=== PATIENT | male | born 1960 | race African-American/Black ===

== ENCOUNTER 2017-05-27 04:17 | Observation (INO) | payer OTHER ==
[2017-05-27 05:35] LABS: #Basophils 0.1 thou/uL (0.0-0.2); #Eosinphils 0.1 thou/uL (0.0-0.7); #Lymphocytes 2.3 thou/uL (1.20-3.40); #Monocytes 0.6 thou/uL (0.11-0.59); #Neutrophils 5.3 thou/uL (1.40-6.50); %Basophils 0.7 % (0.0-1.0); %Eosinophils 1.5 % (0.0-10.0); %Lymphocytes 27.1 % (21.0-51.0); %Monocytes 6.8 % (0.0-10.0); %Neutrophils 63.9 % (42.0-75.0); Hemoglobin 15.3 g/dL (14.0-18.0); Mean Corpuscular HGB CONC 32.6 g/dL (32.0-36.0); Mean Corpuscular Hemoglobin 30.2 pg (27.0-31.0); Mean Corpuscular Volume 92.7 fl (80.0-94.0); Mean Platelet Volume 7.8 fL (7.4-10.4); Platelet Count 196 thou/uL (130-400); RBC Distribution Width 12.6 % (11.5-14.5); Red Blood Cell (RBC) Count 5.05 mill/uL (4.70-6.10); White Blood Cell (WBC) Count 8.3 thou/uL (4.8-10.8)
[2017-05-27 05:59] LABS: ALT (SGPT) 19 U/L (8-55); AST (SGOT) 15 U/L (5-34); Albumin 3.6 g/dL (3.5-5.0); Alkaline Phosphatase 61 U/L (40-150); Anion Gap 15 mmol/L (10-20); BUN (Urea Nitrogen) 11 mg/dL (8.4-25.7); Bilirubin, Total 0.2 mg/dL (0.2-1.2); CK (CPK) 157 U/L (30-200); Calc. Creatinine Clearance 0 mL/min (70-130); Carbon Dioxide 20 mmol/L (22-29); Chloride 108 mmol/L (98-107); Estimated GFR-MDRD 73; Globulin 3.6 g/dL (2.4-3.5); Glucose 120 mg/dL (70-105); Potassium 3.8 mmol/L (3.5-5.1); Protein, Total 7.2 g/dL (6.0-8.3); Sodium 139 mmol/L (136-145)
[2017-05-27 06:05] LABS: CKMB 1.4 ng/mL (0-6.6); Troponin I Less than 0.010 ng/mL (< 0.028)
[2017-05-27] MEDS ORDERED: NS 0.9% w/ 20 MEQ KCL 1,000 ML/1,000 ML BAG IV SCH (08:33)
[2017-05-27] MEDS ORDERED: Acetaminophen 325 MG TAB PO PRN (08:33)
[2017-05-27] MEDS ORDERED: Mag-Al 1200 mg/1200 mg/30 ML UDCUP PO PRN (08:33)
[2017-05-27] MEDS ORDERED: Ondansetron HCl/PF 4 MG/2 ML Vial IVP PRN (08:33)
[2017-05-27 08:47] VITALS: BMI 37.5
--- NOTE | 2017-05-27 09:33 | HP ---
PRIMARY CARE PHYSICIAN: Dr. Benita Omalley. CHIEF COMPLAINT: Extreme weakness and diarrhea. HISTORY OF PRESENT ILLNESS: Mr. Lechuga is a 56-year-old gentleman that has no significant past medi manas history. He says that he got off from work, and when he got home, he had drink a vodka and cranb erry and then around midnight went to sleep. He said that around 3:00 in the morning, he had the urg e to go the bathroom and then suddenly he got profusely sweaty and dizzy and lost his balance. He th ought he was going to throw up but he did not, but then got so weak and then started having severe profuse diarrhea. He says that he was extremely weak and could barely stand up. He is not sure how many times he went to the bathroom with the diarrhea. He does not remember having any blood in the s tools, but he was so weak he had to call EMS to get help. He says he thought he was going to . Nikko duarte denies having any chest pain or shortness of breath or fever or chills during this time, and when nikko duarte was brought to the emergency room, a CT scan of the brain was done because he was not sure if he du s had passed out or not. It was also noted that his blood pressure was on the lower side and a CT sc an of the brain was negative. Blood pressure was slightly low. All his lab work looked normal and nikko duarte is being placed in observation. REVIEW OF SYSTEMS: CONSTITUTIONAL: There have been no fevers, no chills, no night sweats, no weight loss. HEENT: He denies any headache. He did have some dizziness and feeling lightheaded, no sore throat, rhinorrhea, neck pain, no adenopathy. PULMONARY: No hemoptysis, no cough, no wheezing. CARDIOVASCULAR: He denies any chest pain, no shortness of breath, no PND, no orthopnea. GASTROINTESTINAL: As the history of present illness. He also denied having any abdominal pain, no h ematemesis. GENITOURINARY: No urinary frequency, hematuria, no hesitancy. NEUROLOGIC: No focal weakness, numbness, no seizures. PSYCHIATRIC: No symptoms of anxiety or depression. SKIN AND INTEGUMENT: No skin changes. No rash. MUSCULOSKELETAL: There is no muscle weakness or joint weakness. PAST MEDICAL HISTORY: Negative for any chronic illnesses. PAST SURGICAL HISTORY: Also negative. ALLERGIES: PENICILLIN. SOCIAL HISTORY: He smokes about a half a pack of cigarettes for 20 years. He says he has no intenti ons of quitting. He also drinks a couple of wine or vodka every few weeks, and he is . He du s 1 child. 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 FAMILY HISTORY: Significant for diabetes in his mother. CURRENT MEDICATIONS: None. PHYSICAL EXAMINATION: GENERAL: Currently, he is awake and alert, oriented to person, place and time. VITAL SIGNS: His blood pressure is ranging from about 110 to 129 systolic, heart rate is in the 80s, respiratory rate is 16, and he is afebrile. HEENT: Pupils are equal, round, and reactive. Extraocular muscles are intact. His sclerae are anic teric. Throat: No erythema, no exudates. NECK: No adenopathy, no bruits. LUNGS: Clear to auscultation, no wheezing, no rales. CARDIOVASCULAR: He has a normal S1, S2. I did not appreciate an S3 or S4. No murmurs, clicks or ru bs. ABDOMEN: Soft, it is nontender, nondistended. Positive for bowel sounds. No rebound, no guarding. EXTREMITIES: There is no clubbing, cyanosis, no edema. NEUROLOGIC: The exam is grossly nonfocal. SIGNIFICANT LABORATORY AND X-RAY FINDINGS: Again, CT scan of the head is reported as being negative. The final report is not yet available. Sodium is 139, potassium 3.8, chloride is 108, CO2 is 20, B UN of 11, creatinine 1.06, glucose is 120. Lactic acid was 2.9. White blood cell count 8.3, hemoglo bin 15.3, hematocrit is 46.8, platelet count is 196. He had an EKG and that was sinus rhythm and no acute changes and normal EKG. ASSESSMENT AND PLAN: This is a 56-year-old gentleman that presents with a presyncopal episode likely as a result of gastroenteritis and infectious diarrhea. In further history with the patient, he had been to a restaurant the night of him getting ill. He went to [facility] and had chicken and the night before that he had gone to a [place] restaurant and then had some shrimp fried rice. I suspect it m ay have been from the shrimp fried rice and he may have had a bacillus cereus infection, it seems con sistent and the incubation period seems consistent. Therefore, he will be placed in observation. We will place him on IV hydration, recheck his vitals later on this afternoon, and if he is improving, tolerating an oral diet and is clinically stable, then likely he can be discharged home. This illnes s should be self-limiting.
--- NOTE | 2017-05-27 11:38 | CT ---
PRELIMINARY REPORT/[facility]/EMERGENTY AFTER-HOURS PROCEDURE CT Head Without Intravenous Contrast CLINICAL HISTORY: 56 years old, male; Signs and symptoms; Other: Weakness; Patient HX: Er 13; M 56 presents to ed with weakness/dizziness, diarrhea and diaphoresis that began suddenly tonight. Pt states that he felt norm al when he returned home, had 1 drink before bed was normal until midnight, tried to get to the bathroom but felt weak and tried to crawl back to bedroom (approx 20 min), was unable to get up while trying to crawl back to bed. TECHNIQUE: Axial computed tomography images of the head/brain without intravenous contrast. COMPARISON: No relevant prior studies available. FINDINGS: Brain: Mild volume loss No hemorrhage. No significant white matter disease. No edema. Ventricles: Unremarkable. No ventriculomegaly. Bones/joints: Unremarkable. No acute fracture. Soft tissues: Unremarkable. Sinuses: Minimal mucosal thickening in the ethmoid air cells No acute sinusitis. Mastoid air cells: Opacified left mastoid cavity. IMPRESSION: Opacified left mastoid cavity. Correlate for otomastoiditis No intracranial hemorrhage. Please see discussion above. Thank you for allowing us to participate in the care of your patient. Dictated and Authenticated by: Ganesh Kurtz MD 05/27/2017 5:24 AM Central Time ([place] & [place]) FINAL REPORT HEAD CT WITHOUT CONTRAST: Date: 05/27/17 COMPARISON: None. HISTORY: Weakness, dizziness, and diaphoresis. FINDINGS: I agree with the preliminary report given by Brandi. There are a few opacified mastoid air cells inferi bridget on the right. On the left, there is complete opacification of the mastoid air cells with soft ti ssue density in the tympanic cavity. There is no intracranial hemorrhage, midline shift, mass effect, or ventricular enlargement. IMPRESSION: No intracranial hemorrhage or displaced calvarial fracture. Opacification of tympanic cavity and mast oid air cells on the left, which could represent otomastoiditis in the proper clinical setting. POS: JEANNE
[2017-05-27 12:43] VITALS: BP 106/72; TEMP 98
--- NOTE | 2017-05-27 21:50 | DIS ---
DATE OF ADMISSION: 05/27/2017 DATE OF DISCHARGE: 05/27/2017 PRIMARY CARE PHYSICIAN: Benita Omalley M.D. DISCHARGE DISPOSITION: Home. PRIMARY DISCHARGE DIAGNOSES: 1. Acute gastroenteritis, presumed infectious. 2. Presyncope due to #1. DISCHARGE MEDICATIONS: None. CODE STATUS: FULL CODE. ALLERGIES: PENICILLIN G. PROCEDURES DONE DURING ADMISSION: The patient had a CT scan of the brain, which was negative for any acute intracranial process. HOSPITAL COURSE: Mr. Lechuga is a pleasant 56-year-old gentleman, who presented to the emergency [facility] complaining of severe weakness. This was coinciding with an acute episode of violent diarrhea epis ode. He was so weak that he felt it necessary to come to the hospital. In the emergency room, he wa s found to be hypotensive and it is felt that the symptoms were likely as a result of volume depletio n from the diarrhea. An EKG done in the ER was also normal. After he was placed in observation and given at least 2 liters of IV fluids, the patient was feeling much better. Later on in the afternoon , he was able to eat without difficulty and the diarrhea had essentially gone away, and as a result, he was discharged home for close followup.
== END 2017-05-27 15:35 | disposition home or self-care (01) ==
LOC: ERS 04:17 → ERHOLD 06:26 → SURG A 08:21
PROVIDERS: ADMIT Internal Medicine; ATTEND Internal Medicine
DX: K52.9 Noninfective gastroenteritis and colitis, unspecified (principal); R55 Syncope and collapse; F17.210 Nicotine dependence, cigarettes, uncomplicated; Z88.0 Allergy status to penicillin
CPT/HCPCS: 36415; 70450; 80053; 82550; 82553; 83605; 84484; 85025; 93005; 96360; 96361; G0378